=== PATIENT | male | born 1985 | race Caucasian/White ===

== ENCOUNTER 2019-06-25 11:21 | Inpatient (IN) ==
[2019-06-25] MEDS ORDERED: ZOFRAN IM PRN (12:37)
[2019-06-25] MEDS ORDERED: PHENOBARBITAL IV PRN (12:37)
[2019-06-25] MEDS ORDERED: D5W 1,000 ML IV PRN (12:37)
[2019-06-25] MEDS ORDERED: IMODIUM PO PRN ×2 (12:37)
[2019-06-25] MEDS ORDERED: DESYREL PO PRN (12:37)
[2019-06-25] MEDS ORDERED: ZOFRAN ODT PO PRN (12:37)
[2019-06-25] MEDS ORDERED: SENOKOT PO PRN (12:37)
[2019-06-25] MEDS ORDERED: ZOFRAN IV PRN (12:37)
[2019-06-25] MEDS ORDERED: TUBERSOL ID ONE (12:37)
[2019-06-25] MEDS ORDERED: TYLENOL PO PRN (12:37)
[2019-06-25] MEDS ORDERED: DULCOLAX PR PRN (12:37)
[2019-06-25] MEDS ORDERED: MAALOX PLUS LIQUID PO PRN (12:37)
[2019-06-25] MEDS ORDERED: MOTRIN PO PRN (12:37)
[2019-06-25] MEDS: NICODERM PATCH TD PRN (13:08)
[2019-06-25] MEDS: NICOTINE GUM BUCCAL PRN (13:08)
[2019-06-25 13:35] LABS: MCH 33.6 PG (27-31); MCHC 34.1 g/dL (33-37); MCV 98.7 FL (81-99); MPV 8.7 FL (7.4-10.4); RBC 4.46 XMIL (4.7-6.1); RDW 11.4 % (11.5-14.5); WBC 4.88 X1000 (4.8-10.8)
[2019-06-25 13:53] LABS: AGAP 19; ALBUMIN 4.6 g/dL (3.5-5.0); ALKALINE PHOSPHATASE 80 U/L (32-122); AMYLASE 34 U/L (20-200); BUN 9 mg/dL (8-22); CALCIUM 9.3 mg/dL (8.8-10.2); CHLORIDE 96 mmol/L (98-107); COSMO 274; CREATININE 0.7 mg/dL (0.7-1.2); ESTIMATED GFR > 60; GLUCOSE 190 mg/dL (70-104); GOT 173 U/L (10-34); GPT 116 U/L (10-44); LIPASE 61 U/L (13-60); POTASSIUM 3.7 mmol/L (3.5-5.1); SODIUM 135 mmol/L (136-145); TCO2 20 mmol/L (25-35)
[2019-06-25] MEDS ORDERED: ROBAXIN PO PRN (14:16)
[2019-06-25] MEDS ORDERED: SALINE LOCK IV FLUID XX ONE (14:16)
[2019-06-25] MEDS ORDERED: BENTYL PO PRN (14:16)
[2019-06-25] MEDS ORDERED: M.V.I.-12 10 ML, FOLIC ACID 1 MG, MAGNESIUM SULFATE 1 GM, THIAMINE 100 MG in NS 1,000 ML IV ONE (14:16)
[2019-06-25] MEDS: LIBRIUM PO SCH ×2 (15:08→20:48)
[2019-06-25 15:32] LABS: URINE SOURCE CLEAN CATCH
[2019-06-25 15:36] LABS: BILIRUBIN URINE NEGATIVE (NEGATIVE); BLOOD URINE 2+ (NEGATIVE); CLARITY CLEAR (CLEAR); COLOR YELLOW; GLUCOSE URINE NEGATIVE (NEGATIVE); KETONE URINE 1+(Small) mg/dL (NEGATIVE); LEUKOCYTES URINE TRACE (NEGATIVE); NITRITE URINE NEGATIVE (NEGATIVE); PH URINE 6.5; PROTEIN URINE 2+(100 mg/dL) mg/dL (NEGATIVE); SP GRAVITY URINE 1.015; UROBILINOGEN URINE 1 mg/dL
[2019-06-25 15:41] LABS: URINE BACTERIA 1+ /HFP; URINE EPITHELIAL CELLS >10 /HPF (<10); URINE RBC 20-40 /HPF (<10)
[2019-06-25 15:45] LABS: UR AMPHETAMINES QUAL NONE DETECTED (NONE DETECT); UR BARBITUATES QUAL NONE DETECTED (NONE DETECT); UR BENZODIAZEPIN QUAL NONE DETECTED (NONE DETECT); UR CANNABINOIDS QUAL PRESUMPTIVE POSITIVE (NONE DETECT); UR COCAINE QUAL NONE DETECTED (NONE DETECT); UR METHADONE QUAL NONE DETECTED (NONE DETECT); UR METHAMPHETAMINE QUAL NONE DETECTED (NONE DETECT); UR OPIATES QUAL NONE DETECTED (NONE DETECT); UR OXYCODONE QUAL NONE DETECTED (NONE DETECT); UR PCP QUAL NONE DETECTED (NONE DETECT); UR PROPOXYPHENE QUAL NONE DETECTED (NONE DETECT); UR TCA QUAL NONE DETECTED (NONE DETECT)
[2019-06-25] MEDS: ATARAX PO PRN (17:56)
[2019-06-25] MEDS: SEROQUEL PO PRN (20:49)
[2019-06-26] MEDS: LIBRIUM PO SCH ×5 (04:36→20:14)
[2019-06-26] MEDS: PROTONIX PO SCH (06:42)
[2019-06-26] MEDS: FOLIC ACID PO SCH (09:32)
[2019-06-26] MEDS: VITAMIN B-1 PO SCH (09:32)
[2019-06-26] MEDS: THERA M PLUS PO SCH (09:33)
[2019-06-26] MEDS: NICODERM PATCH TD PRN (15:31)
[2019-06-26] MEDS: NICOTINE GUM BUCCAL PRN ×3 (15:31→20:17)
[2019-06-26] MEDS: ATARAX PO PRN (16:39)
[2019-06-26] MEDS: SEROQUEL PO PRN (20:16)
--- NOTE | 2019-06-26 23:15 | PROGRESS NOTE ---
DATE: 06/26/2019 SUBJECTIVE: Patient notes he feels terrible overall. Does feel a little bit better. Denies any fevers or chills. Still having some muscle aches and mild tremors. PHYSICAL EXAMINATION: Vital Signs: Reviewed. General: He is awake, alert. He is in no respiratory distress. HEENT: Normocephalic. Neck: Supple. Cardiovascular: Regular rate. No murmurs. Chest: Clear, nonlabored. Abdomen: Soft, nondistended, nontender. Extremities: Moves all extremities. Neurologic: No changes. Does have mild tremors on exam. ASSESSMENT: 1. Nausea and vomiting. 2. Abdominal pain. 3. Myalgias. 4. Tremors. 5. Paresthesias. 6. Paroxysmal sweating. 7. Alcohol abuse, withdrawal and stabilization. PLAN: We will continue patient in the hospital. Continue high-dose Librium taper. Continue counseling. Further orders as needed. cc: Tray Tavares MD
[2019-06-27] MEDS: LIBRIUM PO SCH ×3 (01:50→09:30)
[2019-06-27] MEDS: NICOTINE GUM BUCCAL PRN ×2 (01:50→04:51)
[2019-06-27] MEDS: PROTONIX PO SCH ×2 (04:52→09:31)
[2019-06-27] MEDS ORDERED: REVIA PO ONE (08:33)
[2019-06-27 08:46] VITALS: BP 135/86
[2019-06-27] MEDS: THERA M PLUS PO SCH (09:31)
[2019-06-27] MEDS: FOLIC ACID PO SCH (09:31)
[2019-06-27] MEDS: VITAMIN B-1 PO SCH (09:31)
[2019-06-27] MEDS ORDERED: VIVITROL IM ONE (12:00)
--- NOTE | 2019-06-29 14:10 | HISTORY AND PHYSICAL ---
CHIEF COMPLAINT: Nausea and vomiting. HISTORY OF PRESENT ILLNESS: Patient is a 33-year-old male who presented to [facility] secondary to nausea, vomiting and abdominal pain. Notes that he is having myalgias, occasional tremors. SOCIAL HISTORY: The patient is single, currently employed at [employer]. Lives in [place]. PAST MEDICAL HISTORY: Hypertension, ADHD, chronic anxiety. He has had blood in his urine, has had blood in his emesis, felt to be alcohol related. He has had head injuries, concussions and seizures felt to be alcohol related. MEDICATIONS: Ritalin. ALLERGIES: Sulfa. REVIEW OF SYSTEMS: CIWA score is 33 secondary to nausea, vomiting, tremors, myalgias, paresthesias, easily agitated. He is having moderate sensitivity to light. He is anxious, nervous, unable to sit still. Denies any recent blood in his stool, blood in his emesis. Denies blurry vision, change in vision. Denies any in focalized numbness, tingling or weakness. Denies skin rashes. Denies diarrhea, constipation, melena, hematochezia. SUBSTANCE ABUSE HISTORY: The patient was in treatment in 2007 for alcohol and Xanax for 1 week. Notes that alcohol has caused financial and health problems. He has been unable to eat or keep anything down for the past week. Started drinking at age 13, currently drinks up to a 5th of a gallon a day for the past 6 months. Started marijuana at 15, currently uses every 1 or 2 weeks. Started depressants in his 20s, currently takes only as prescribed. Tried cocaine in his 20s, has not used in the past 2 years. Started mushrooms in his 20s, only used occasionally. Started opiates at 16, abused for several years. Stopped somewhere in his early 20s. Started smoking at age 9, currently smokes up to 3 packs a day. FAMILY HISTORY: Noncontributory. PHYSICAL EXAMINATION: VITAL SIGNS: Reviewed. GENERAL: Patient is awake, alert, oriented. He is in no current respiratory distress. HEENT: Normocephalic. NECK: Supple. CARDIOVASCULAR: Regular rate. No murmurs. CHEST: Clear, nonlabored. ABDOMEN: Soft, nondistended. EXTREMITIES: Moves all extremities. NEUROLOGIC: He is awake, alert, oriented. He is fidgety, anxious, unable sit still, has difficulty answering questions and following directions. ASSESSMENT: 1. Nausea, vomiting. 2. Abdominal pain. 3. Myalgias. 4. Paresthesias. 5. Paroxysmal sweating. 6. Alcohol abuse withdrawal and stabilization. 7. Polysubstance use and abuse. 8. Acute hepatitis, likely alcoholic induced. PLAN: We are going to admit the patient to the hospital, follow his progression, place him on high-dose Librium taper, continue counseling. cc: Tray Tavares MD
--- NOTE | 2019-06-30 02:45 | DISCHARGE SUMMARY ---
ADMISSION DATE: 06/25/2019 DISCHARGE DATE: 06/27/2019 DISCHARGE DIAGNOSIS: 1. Nausea, vomiting. 2. Abdominal pain. 3. Myalgias. 4. Paresthesias. 5. Paroxysmal sweating. 6. Alcohol abuse, withdrawal and stabilization. 7. Chronic tobacco abuse. Plan cessation counseling. 8. Hypertension. 9. Attention deficit hyperactivity disorder. 10. Polysubstance use and abuse. CONSULTATIONS: None. PROCEDURES: None. BRIEF HOSPITAL COURSE: The patient is a 33-year-old male who presented to [facility] program secondary to nausea, vomiting, abdominal pain, myalgias, paresthesias, paroxysmal sweating. He was noted to be in acute alcohol withdrawal as well as acute hepatitis. Thankfully, his liver functions improved over time. We admitted him to the hospital, placed him on high-dose Librium taper. Continued counseling. On discharge, he is awake, alert, oriented. He is in no distress. DISPOSITION: The patient will be discharged home to follow up outpatient with treatment facility of choice. Discussed he needs outpatient life counseling as well as drug counseling. He needs to consider medication-assisted therapy for at least 6 months. TIME: Greater than 30 minutes was spent in total care. cc: Tray Tavares MD
== END 2019-06-27 10:32 | disposition home or self-care (01) | DRG 897 ==
LOC: P.DIRADM 11:50 → P.MEDSURG 12:08
PROVIDERS: ADMIT Family Medicine; ATTEND Family Medicine